=== PATIENT | female | born 1975 | race Caucasian/White ===

== ENCOUNTER → 2022-06-27 | Outpatient (CLI) | payer OTHER | LOC: M LABSMTC 11:06 | PROVIDERS: ATTEND Anesthesiology | DX: Z01.818 Encounter for other preprocedural examination (principal); Z11.52 Encounter for screening for COVID-19 ==

== ENCOUNTER 2022-06-29 08:50 | Day surgery (SDC) | payer OTHER ==
[~2022-06-29] VITALS: Ht 167.6 cm; Wt 71.6 kg
[~2022-06-29 08:50] MED LIST: ACETAMINOPHEN 325 MG TAB PO PRN; BSS IRRIG/VANCO(10MG)/TOBRA(5MG)/EPINEPH(1:1000-0.5CC)500ML BAG-ORONLY IR ONE; CEFUROXIME 1MG/0.1ML INTRACAMERAL INJ As Ordered ONE; CYCLOPENTOLATE 1% OPHTH SOLN 2 ML BTL OS SCH; LIDOCAINE 1% SDV 5ML VIAL As Ordered ONE; LIDOCAINE 3.5 % 1ML OPHTH TOPICAL GEL OU ONE; OFLOXACIN 0.3 % (OCUFLOX) OPTH SOL 5ML OS ONE; PHENYLEPHRINE 2.5% OPHTH SOL 2ML OS SCH; PHENYLEPHRINE HCL 10 % OPHTH. SOL 5ML OS PRN; TROPICAMIDE 1% OPHTH SOLN 2ML OS SCH
[2022-06-29] MEDS ORDERED: MIDAZOLAM INJ 2MG/2ML VIAL (J2250 PER 1MG) As Ordered ONE (09:38)
[2022-06-29] MEDS ORDERED: fentaNYL 100 MCG/2 ML INJECTION As Ordered ONE (09:38)
[2022-06-29 10:44] VITALS: BP 128/75
[2022-06-29] MEDS ORDERED: ONDANSETRON 4MG TAB PO PRN (11:20)
[2022-06-29] MEDS ORDERED: acetaZOLAMIDE 500MG ER CAP PO ONE (11:20)
== END 2022-06-29 11:35 | disposition home or self-care (01) ==
LOC: M SDC 08:50
PROVIDERS: ATTEND Ophthalmology
DX: H25.12 Age-related nuclear cataract, left eye (principal); G47.30 Sleep apnea, unspecified
CPT/HCPCS: 66984; 81025; J0697; J2250; J3010; V2632

== ENCOUNTER → 2022-08-22 | Outpatient (CLI) | payer OTHER ==
[~2022-08-22] MED LIST changes: -ACETAMINOPHEN 325 MG TAB PO PRN; -BSS IRRIG/VANCO(10MG)/TOBRA(5MG)/EPINEPH(1:1000-0.5CC)500ML BAG-ORONLY IR ONE; -CEFUROXIME 1MG/0.1ML INTRACAMERAL INJ As Ordered ONE; -CYCLOPENTOLATE 1% OPHTH SOLN 2 ML BTL OS SCH; -LIDOCAINE 1% SDV 5ML VIAL As Ordered ONE; -LIDOCAINE 3.5 % 1ML OPHTH TOPICAL GEL OU ONE; -OFLOXACIN 0.3 % (OCUFLOX) OPTH SOL 5ML OS ONE; -PHENYLEPHRINE 2.5% OPHTH SOL 2ML OS SCH; -PHENYLEPHRINE HCL 10 % OPHTH. SOL 5ML OS PRN; +SUPE5000 PO; -TROPICAMIDE 1% OPHTH SOLN 2ML OS SCH; +VITMTA PO
== END ==
LOC: M LABSMTC 09:33
PROVIDERS: ATTEND Anesthesiology
DX: Z01.812 Encounter for preprocedural laboratory examination (principal); Z20.822 Contact with and (suspected) exposure to COVID-19

== ENCOUNTER 2022-08-24 11:19 | Day surgery (SDC) | payer OTHER ==
[~2022-08-24] VITALS: Ht 167.6 cm; Wt 72.6 kg
[~2022-08-24 11:19] MED LIST changes: +BSS IRRIG/VANCO(10MG)/TOBRA(5MG)/EPINEPH(1:1000-0.5CC)500ML BAG-ORONLY IR ONE; +CEFUROXIME 1MG/0.1ML INTRACAMERAL INJ As Ordered ONE; +CYCLOPENTOLATE 1% OPHTH SOLN 2 ML BTL OD SCH; +LIDOCAINE 1% SDV 5ML VIAL As Ordered ONE; +LIDOCAINE 3.5 % 1ML OPHTH TOPICAL GEL OU ONE; +MIDAZOLAM INJ 2MG/2ML VIAL (J2250 PER 1MG) As Ordered ONE; +OFLOXACIN 0.3 % (OCUFLOX) OPTH SOL 5ML OD ONE; +PHENYLEPHRINE 2.5% OPHTH SOL 2ML OD SCH; +PHENYLEPHRINE HCL 10 % OPHTH. SOL 5ML OD PRN; +TROPICAMIDE 1% OPHTH SOLN 2ML OD SCH; +fentaNYL 100 MCG/2 ML INJECTION As Ordered ONE
[2022-08-24 14:28] VITALS: BP 112/60
== END 2022-08-24 15:02 | disposition home or self-care (01) ==
LOC: M SDC 11:19
PROVIDERS: ATTEND Ophthalmology
DX: H25.11 Age-related nuclear cataract, right eye (principal); R51.9 Headache, unspecified; G47.33 Obstructive sleep apnea (adult) (pediatric); Z79.899 Other long term (current) drug therapy
CPT/HCPCS: 66984; 81025; 92015; J0697; J2250; J3010; V2632